=== PATIENT | male | born 1995 | race Caucasian/White ===

== ENCOUNTER 2020-09-10 22:00 | Emergency (ER) | payer BC ==
[~2020-09-10] VITALS: Ht 167.6 cm; Wt 81.8 kg
[2020-09-10 22:06] VITALS: Ht 167.6 cm; Wt 81.8 kg
[2020-09-10 22:59] LABS: BASOPHILS 0.2 % (0-2); EOSINOPHILS 0.3 % (0-7); HEMATOCRIT 40.1 % (42.0-54.0); HEMOGLOBIN 13.9 g/dL (13.5-17.5); IMMATURE GRANULOCYTES 0.2 % (0-5); LYMPHOCYTE ABS# 2.98 10x3/uL (1.32-3.57); LYMPHOCYTES 26.1 % (15-50); MCH 29.1 pg (26.0-34.0); MCHC 34.7 g/dL (31.0-37.0); MCV 83.9 fL (80.0-100.0); MEAN PLATELET VOLUME 8.7 fL (7.4-10.4); MONOCYTES 10.3 % (2-11); NEUTROPHIL ABS# 7.18 10x3/uL (1.78-5.38); NEUTROPHILS 62.9 % (40-80); PLATELET COUNT 196 10x3/uL (130-400); RBC 4.78 10x6/uL (4.20-6.10); RDW 12.7 % (11.5-14.5); WBC 11.4 10x3/uL (4.8-10.8)
[2020-09-10 23:07] LABS: ANION GAP 12.9 mmol/L (8-16); CALCIUM 8.9 mg/dL (8.5-10.1); CARBON DIOXIDE 28.6 mmol/L (21.0-32.0); CREATININE - SERUM 1.7 mg/dL (0.6-1.3); POTASSIUM - SERUM 3.5 mmol/L (3.5-5.1)
[2020-09-10 23:13] LABS: ALBUMIN 3.6 g/dL (3.4-5.0); BILIRUBIN - TOTAL 0.73 mg/dL (0.2-1.3); PROTEIN - SERUM 7.3 g/dL (6.4-8.2)
[2020-09-10 23:22] LABS: BILIRUBIN NEGATIVE (NEGATIVE); KETONE NEGATIVE (NEGATIVE); NITRITE NEGATIVE (NEGATIVE); UROBILINOGEN NORMAL mg/dL (< 2)
[2020-09-11] MEDS ORDERED: ULTRAM50 MG PO (00:36)
[2020-09-11 01:01] VITALS: BP 151/100
== END 2020-09-11 01:02 | disposition home or self-care (01) ==
LOC: D.ER 22:00
PROVIDERS: Family Medicine
DX: S06.0X1A Concussion with loss of consciousness of 30 minutes or less, initial encounter (principal); Y08.89XA Assault by other specified means, initial encounter; T74.11XA Adult physical abuse, confirmed, initial encounter; S20.219A Contusion of unspecified front wall of thorax, initial encounter; H21.01 Hyphema, right eye; I10 Essential (primary) hypertension